=== PATIENT | male | born 1940 | race Caucasian/White ===

== ENCOUNTER → 2019-04-11 | Outpatient (CLI) | payer MEDICARE, BC ==
--- NOTE | 2019-04-11 16:45 | US ---
EXAMINATION TYPE: US venous doppler duplex LE LT DATE OF EXAM: 04/11/2019 4:19 PM COMPARISON: NONE CLINICAL HISTORY: M79.605 Pain in left leg, R22.42Localized swelling. Left leg edema for 2 weeks SIDE PERFORMED: left TECHNIQUE: The lower extremity deep venous system is examined utilizing real time linear array sonog steven with graded compression, doppler sonography and color-flow sonography. VESSELS IMAGED: External Iliac Vein (EIV) Common Femoral Vein Deep Femoral Vein Greater Saphenous Vein * Femoral Vein Popliteal Vein Small Saphenous Vein * Proximal Calf Veins (* superficial vessels) Left Leg: No evidence of DVT. Superficial thrombus noted within left upper calf IMPRESSION: There is minimal superficial vein thrombosis. No deep venous thrombosis.
== END | disposition home or self-care (01) ==
LOC: RADUSWWP 15:58
PROVIDERS: ATTEND Physician Assistant
DX: I82.812 Embolism and thrombosis of superficial veins of left lower extremity (principal)

== ENCOUNTER → 2020-09-24 | Outpatient (CLI) | payer MEDICARE, BC ==
--- NOTE | 2020-09-24 08:46 | CT ---
EXAMINATION TYPE: CT hip LT wo con DATE OF EXAM: 09/24/2020 COMPARISON: None. HISTORY: Lt hip pain for one month, prior surgery years ago per patient. CT DLP: 681 mGycm Automated exposure control for dose reduction was used. 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 No periprosthetic fracture. On localizer the metallic femoral head is slightly laterally positioned 3 to 5 mm in the metallic acetabular cup. This raises concern for polyethylene linear wear . In addition there is hypodensity surrounding the intertrochanteric portion of the metallic femoral stem, there is suggestion of bony destruction or resorption particularly near level of the [place] les ser trochanter . No obvious adjacent soft tissue mass. Multiple left thigh is maintained. No groin hernia or adenopathy. Incidental partial visualization of left pelvic sigmoid colonic diverticulosis. IMPRESSION: As above. 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 Infection should be excluded clinically. Correlation with with current and older radiographs would be most beneficial to assess for interval change .
== END | disposition home or self-care (01) ==
LOC: RADCTMAIN 07:23
PROVIDERS: ATTEND Orthopaedic Surgery
DX: M25.552 Pain in left hip (principal); Z96.642 Presence of left artificial hip joint

== ENCOUNTER 2024-09-23 13:16 | Day surgery (SDC) | payer MEDICARE ==
[~2024-09-23 13:16] MED LIST: LIDOCAINE 1% (10MG/ML) FOR IV START INTRADERMA PRN; ONDANSETRON 4 MG/2 ML VIAL IVP PRN; fentaNYL (PF) 50 MCG/ML 2 ML AMP IV PRN
[2024-09-23 13:52] LABS: Basophils # (A) 0.04 10*3/uL (0.00-0.10); Basophils % (A) 0.5 %; Eosinophils # (A) 0.09 10*3/uL (0.04-0.35); Eosinophils % (A) 1.2 %; HCT 39.2 % (39.6-50.0); HGB 13.2 g/dL (13.0-17.0); Lymphocytes % (A) 22.1 %; MCH 29.5 pg (27.0-32.0); MCHC 33.7 g/dL (32.0-37.0); MCV 87.5 fL (80.0-97.0); Mean Platelet Volume 9.8 fL (9.5-12.2); Monocytes % (A) 10.4 %; Neutrophils # (A) 5.02 10*3/uL (1.80-7.70); Neutrophils % (A) 65.4 %; Platelet Count 269 10*3/uL (140-440); RBC 4.48 10*6/uL (4.40-5.60); RDW 11.9 % (11.5-14.5); WBC 7.68 10*3/uL (4.50-10.00)
[2024-09-23] MEDS ORDERED: MIDAZOLAM 2 MG/2 ML VIAL ONE (14:06)
[2024-09-23] MEDS ORDERED: fentaNYL (PF) 50 MCG/ML 2 ML AMP ONE (14:06)
[2024-09-23] MEDS: IV FLUID CONTINUATION 1,000 ML IV ONE (14:11)
[2024-09-23] MEDS: IOPAMIDOL-370 100ML BTL INJ ONE (14:27)
[2024-09-23] MEDS: ceFAZolin 1 GM in SODIUM CHLORIDE 0.9% IRRIG BTL 250 ML IRRIGATION PRN (15:00)
[2024-09-23] MEDS: ROPIVACAINE 5 MG/ML 30 ML VIAL MISCELLANE ONE (15:01)
[2024-09-23] MEDS: LIDOCAINE 1% INJ 10MG/ML (20 ML MDV) SQ ONE (15:01)
--- NOTE | 2024-09-23 16:49 | P.EPPROC ---
- EP Procedure Note Electrophysiology Procedure Note: Diagnosis Symptomatic bradycardia, unprovoked, no triggering factors Sick sinus syndrome with advanced AV block, likely RV pacing with standard RV lead would be close to 100% Procedure Dual-chamber pacemaker implantation with conduction system pacing (left bundle pacing) to avoid standard RV pacing Left upper extremity venogram Result: Successful dual-chamber pacemaker implant with left bundle pacing Intrinsic right bundle branch block, rSR', activation time 44 ms With unipolar pacing,QR paced pattern, activation time in V6 equals 60 ms, activation time in lead I equals 71 ms, differential with intrinsic activation time is at least 16 ms With bipolar pacing activation time in V6 is 65 ms and in lead I is 74 ms with a similar QR paced pattern, 155 ms QRS width Details Patient was brought to the EP lab in a fasting state. Written informed consent was obtained prior to the procedure. Conscious sedation provided by FITNESS MANAGEMENT DIRECTOR. IV antibiotics administered. Local anesthesia administered. A 4 cm incision made in the pectoral area. Subfascial pocket made. Venous accesses obtained Venous sheaths placed. Leads placed in the right heart. 2 sets of pacing cables were used; one for backup temporary pacing and the other for assessment of current of injury and signal analysis. A 52 cm atrial pacing lead was first positioned in the RV apex for temporary pacing during mapping and conduction system pacing Thresholds were interrogated and backup high output pacing was provided This atrial lead was then removed from the right ventricle and later positioned in the right atrial appendage and the permanent lead A deflected sheath was prepped. A coronary sinus decapolar catheter was placed within this sheath. The catheter along with the sheath was then passed into the right heart, the catheter was prolapsed across the tricuspid valve, into the right ventricle and then further into the right ventricular outflow tract across the pulmonic valve into the pulmonary artery. This sheath was slid over this decapolar catheter into the RVOT. Thereafter the catheter last sheath assembly was withdrawn from the RVOT along the septum to the mid septal area. The sheath was appropriately to to map the right ventricular aspect of the septum. The decapolar catheter was withdrawn, the sheath flushed again and the screw-in pacing lead placed within the sheath. Further detailed unipolar pace-mapping of the septum was performed and once the appropriate based morphology was obtained on lead V1, the lead was screwed into the septum. The lead was screwed in 4-5 returns at a time while monitoring the current of injury, the pacing impedance changes and the paced QRS morphology. The stimulus to peak of V6 QRS was measured at each step. Once a QR or rSR pattern of paced QRS in lead V1 was obtained, a left bundle signal was sought. Impedance was measured and thresholds were measured. An impedance drop of 100-200 ohms but above 550 ohms was targeted along with an unchanged vector of the current of injury signal. The final positioning was based on the QRS morphology in lead V1 and a short stimulus to peak of the V6 QRS of less than 90 ms. The sheath was withdrawn, stability of the pacing lead deep in the septum was confirmed on GHOSH and [place] v iews and the sheath was slipped and an adequate heel was provided for the lead. Unipolar and bipolar electrogram morphology obtained Atrial lead positioned in the right atrial appendage. 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
--- NOTE | 2024-09-23 16:51 | P.PRLE ---
RE: Andrew Pyle Dear Melvin Patient underwent successful dual-chamber pacemaker with left bundle/conduction system pacing for sick sinus syndrome and advanced AV block. Hopefully this maintains his LV function over the years instead of standard RV pacing He will continue to follow-up with you and Dr. Pires as before and will continue his current medications Thank you for entrusting me with the care of the patient Warm regards Sincerely Deniz Foss
[2024-09-23] MEDS: ACETAMINOPHEN IV (For NPO) 1,000 MG in EMPTY BAG 1 BAG IVPB ONE (17:02)
[2024-09-23] MEDS: LACTATED RINGERS 1,000 ML IV SCH (17:02)
[2024-09-23] MEDS: SODIUM CHLORIDE 0.9% 1,000 ML IV SCH ×2 (17:47)
[2024-09-23] MEDS: ACETAMINOPHEN TAB 325 MG TAB PO PRN (22:53)
[2024-09-23] MEDS: lisinopriL 20 MG TAB PO SCH (22:54)
[2024-09-23] MEDS: DORZOLAMIDE-TIMOLOL 2.23%/0.68 10ML BTL BOTH EYES SCH (22:55)
[2024-09-23] MEDS: LATANOPROST 0.005% OPHTH DROPS 2.5 ML BTL BOTH EYES SCH (22:55)
[2024-09-23] MEDS: ceFAZolin 2 GM in DEXTROSE 5% IN WATER 50 ML IVPB SCH (22:56)
[2024-09-24] MEDS: amLODIPine 5 MG TAB PO SCH (07:41)
[2024-09-24] MEDS: hydroCHLOROthiazide 12.5 MG CAP PO SCH (07:41)
[2024-09-24] MEDS: ASPIRIN 81 MG PO SCH (07:41)
[2024-09-24] MEDS: ISOSORBIDE MONONITRATE ER 30 MG TAB.ER.24H PO SCH (07:41)
--- NOTE | 2024-09-24 07:41 | XR ---
EXAMINATION TYPE: XR chest 2V DATE OF EXAM: 09/24/2024 7:21 AM COMPARISON: None TECHNIQUE: XR chest 2V Frontal and lateral views of the chest. CLINICAL INDICATION:Male, 84 years old with history of Lead placement check; FINDINGS: Lungs/Pleura: There is no evidence of pleural effusion, focal consolidation, or pneumothorax. Scatte red calcified granulomas. Pulmonary vascularity: Unremarkable. Heart/mediastinum: Cardiomediastinal silhouette is unremarkable. Atherosclerotic calcifications are seen in the aorta. Two lead cardiac conduction device overlying the left hemithorax with lead tips pr ojecting over the right ventricle and right atrium. Musculoskeletal: Multiple level degenerative disc disease changes seen throughout the spine. Midline sternotomy wires are noted. IMPRESSION: Two lead cardiac conduction device overlying the left hemithorax with lead tips projecting over the r ight ventricle and right atrium. [facility], , 09/24/2024 7:39 AM
[2024-09-24 08:43] VITALS: PULSE 66; RESP 15; TEMP 98.9
[2024-09-24 08:59] VITALS: BP 174/77
[2024-09-24] MEDS: METOPROLOL SUCCINATE (ER) 50 MG TAB.ER.24H PO SCH (09:09)
--- NOTE | 2024-09-24 11:46 | P.DS ---
Providers Attending physician: Deniz Foss Primary care physician: [facility] Course: Patient is doing well. No hematoma no swelling at the pacemaker site Pacemaker interrogation is within normal limits Chest x-ray is within normal limits heart sounds are normal pulse rate in the 60s, blood pressure is elevated prior to administration of medications. Repeat blood pressure 174/77 mmHg Metoprolol XL was added Impression Sick sinus syndrome Symptomatic advanced AV block with bradycardia Status post dual-chamber pacemaker with conduction system pacing Hypertension Plan Add metoprolol succinate 50 mg p.o. daily Follow-up in the office in 1 week If his blood pressure is still elevated we will increase the dose of amlodipine further Pacemaker function is normal Discharge home today and follow-up with Dr. Pires in the pacemaker clinic in 1 week Plan - Discharge Summary Discharge Rx Participant: No New Discharge Prescriptions: Continue RX: Aspirin EC [Ecotrin Low Dose] 81 mg PO DAILY RX: lisinopriL [Zestril] 20 mg PO BID RX: Latanoprost [Latanoprost 0.005%] 1 drop BOTH EYES HS Dorzol/Timol 22.3-6.8mg 1 drop BOTH EYES BID RX: Isosorbide Mononitrate ER [Imdur] 30 mg PO DAILY RX: amLODIPine [Norvasc] 5 mg PO DAILY RX: hydroCHLOROthiazide 12.5 mg PO DAILY Discharge Medication List Dorzol/Timol 22.3-6.8mg 1 drop BOTH EYES BID 09/20/24 [History] RX: Aspirin EC [Ecotrin Low Dose] 81 mg PO DAILY 09/20/24 [History] RX: Isosorbide Mononitrate ER [Imdur] 30 mg PO DAILY 09/20/24 [History] RX: Latanoprost [Latanoprost 0.005%] 1 drop BOTH EYES HS 09/20/24 [History] RX: amLODIPine [Norvasc] 5 mg PO DAILY 09/20/24 [History] RX: hydroCHLOROthiazide 12.5 mg PO DAILY 09/20/24 [History] RX: lisinopriL [Zestril] 20 mg PO BID 09/20/24 [History] Follow up Appointment(s)/Referral(s): Deniz Foss MD [STAFF PHYSICIAN] - (FOLLOW UP APPOINTMENT IS MADE WITH THE DEVICE CLINIC 09/30/24 @ 10:30 Office will call patient with appointment with Dr Pires) Activity/Diet/Wound Care/Special Instructions: PATIENT EDUCATION MATERIAL Instructions following a heart rhythm device implant. 1. Keep dressing DRY for 5 DAYS. You may cover the area with Saran or Cling Wrap, prior to a shower. 2. The dressing will be removed in the Device Clinic at [facility]. Absorbable sutures were used to close the wound. 3. Avoid raising the left arm above the shoulder level. 4 week restriction 4. Avoid arm movements, like backscratching, rubbing the head, or pulling on a cord. 4 weeks restriction 5. Gentle range of motion movements of the shoulder, closest to the incision should be performed to avoid a frozen shoulder. (Pendulum exercises of the shoulder) 6. The opposite arm may be used freely. 7. Avoid driving for 7 days. 8. Avoid activities such as golfing, swimming, weed whacking, lifting more than 10 pounds weight, bowling, gymnastics and weight training/lifting. (6 weeks restriction) 9. Activities such as wood chopping with an axe, pull-ups in the gymnasium, power lifting, arc-welding, being close to home induction cooktops will always be a problem. 10. Arm sling is only a reminder not to raise the arm above the head. You do not need to keep the arm completely immobilized. Your free to move the arm and use it and for normal activities. In case of any problems, please call [facility], @ [phone], Attention: Device Clinic Device clinic follow-up in 5 days Follow-up with primary parking regulation enforcement officer in 2-3 months Discharge Disposition: HOME SELF-CARE
== END 2024-09-24 12:45 | disposition home or self-care (01) ==
LOC: CATHEP 13:16 → 6NMEDSUR 16:24 → CATHEP 09-24 12:45
PROVIDERS: ATTEND Internal Medicine Clinical Cardiac Electrophysiology
DX: I49.5 Sick sinus syndrome (principal); I25.10 Atherosclerotic heart disease of native coronary artery without angina pectoris; I10 Essential (primary) hypertension; Z79.82 Long term (current) use of aspirin; Z79.899 Other long term (current) drug therapy; Z95.5 Presence of coronary angioplasty implant and graft
CPT/HCPCS: 33208; 85025; 71046; C1769 ×2; C1730; C1887; C1892; C1898; C1785; J2250; J0690; J2003; J3010; J2795; Q9967